=== PATIENT | male | born 1975 | race Two or more races ===

== ENCOUNTER 2019-03-22 13:36 | Inpatient (IN) | payer OTHER ==
[2019-03-22 15:10] VITALS: BMI 33.6
--- NOTE | 2019-03-22 17:12 | HP ---
"CIWA Score Nausea/Vomitin-No Nausea/No Vomiting Muscle Tremors: 4-Moderate,w/Arms Extend Anxiety: 2 Agitation: 1-Slight > Activity Paroxysmal Sweats: 1-Minimal Palms Moist Orientation: 0-Oriented Tacttile Disturbances: 0-None Auditory Disturbances: 0-None Visual Disturbances: 2-Mild Sensitivity Headache: 4-Moderately Severe CIWA-Ar Total Score: 14 - Admission Criteria OASAS Guidelines: Admission for Medically Managed Detox: Requires at least one of the followin. CIWA greater than 12 2. Seizures within the past 24 hours 3. Delirium tremens within the past 24 hours 4. Hallucinations within the past 24 hours 5. Acute intervention needed for co occurring medical disorder 6. Acute intervention needed for co occurring psychiatric disorder 7. Severe withdrawal that cannot be handled at a lower level of care (continued vomiting, continued diarrhea, abnormal vital signs) requiring intravenous medication and/or fluids 8. Admission ROS [facility] Allergies/Adverse Reactions: Allergies Allergy/AdvReac Type Severity Reaction Status Date / Time fluphenazine [From Prolixin] Allergy Rash Verified 03/22/19 14:56 haloperidol [From Haldol] Allergy Rash Verified 03/22/19 14:56 risperidone Allergy Rash Verified 03/22/19 14:56 History of Present Illness: This report was requested by: Rocio Jones | Reference #: [id number] Others' Prescriptions Patient Name: Frederick Bliss Date: 1975 Address: [address] [place] [address] Sex: Male Rx Written Rx Dispensed Drug Quantity Days Supply Prescriber Name 03/09/2019 03/13/2019 alprazolam 0.5 mg tablet 60 30 King Carter MD 01/30/2019 01/30/2019 alprazolam 0.5 mg tablet 60 30 Janene Hyatt (PRODUCT BLENDING SUPERVISOR) 01/04/2019 01/07/2019 lorazepam 0.5 mg tablet 60 30 King Carter MD pt here referred by [facility] 2/2 tremors after drinking alcohol x 1 week , reports 1 x 6-pk , starts drinking in the afternoons after work , reports he was upset about news about social security checks PMHX : SAD , DM II , HTN , chronic back pain ( states 4 years ) w/ radiculopathy , varicocele , HLD , surgery age 10 2/2 injury ( nail in head ) denies SI / HI tobacco : 6-7 cigs /day Exam Limitations: No Limitations - Ebola screening Have you traveled outside of the country in the last 21 days: No (N) Have you had contact with anyone from an Ebola affected area: No Do you have a fever: No - Review of Systems Constitutional: No Symptoms Reported EENT: reports: No Symptoms Reported, Other (glasses , missing teeth) Respiratory: reports: Cough (x 1 month , productive, green sputum , reports h /o bronchitis most recent abx tx summer 2018) Cardiac: reports: No Symptoms Reported GI: reports: No Symptoms Reported : reports: No Symptoms Reported Musculoskeletal: reports: Back Pain, Other (left leg) Integumentary: reports: No Symptoms Reported Neuro: reports: See HPI, Headache Endocrine: reports: See HPI Psychiatric: reports: Orientated x3, Agitated, Anxious Patient History - Smoking Cessation Smoking history: Current every day smoker Have you smoked in the past 12 months: Yes Hx Chewing Tobacco Use: No Initiated information on smoking cessation: Yes 'Breaking Loose' booklet given: 03/22/19 - Substances abused Alcohol Substance route: Oral Frequency: Daily Amount used: 6 CANS OF MARGUARITA Age of first use: 20 Date of last use: 03/21/19 Admission Physical Exam S - Vital Signs Vital Signs: Vital Signs - 24 hr 03/22/19 14:55 Temperature 97.5 F L Pulse Rate 94 H Respiratory 18 Rate Blood Pressure 135/83 - Physical General Appearance: Yes: Mild Distress, Sweating, Anxious HEENTM: Yes: EOMI, Hearing grossly Normal, Normocephalic, Normal Voice Respiratory: Yes: Chest Non-Tender, Lungs Clear, Normal Breath Sounds, No Respiratory Distress, No Accessory Muscle Use Neck: Yes: No masses,lesions,Nodules, Trachea in good position Cardiology: Yes: Regular Rhythm, Regular Rate, S1, S2 Abdominal: Yes: Non Tender, Soft Musculoskeletal: Yes: Gait Steady Extremities: Yes: Normal Range of Motion, Non-Tender Neurological: Yes: Fully Oriented, Alert, Motor Strength 5/5, Normal Mood/Affect Integumentary: Yes: Warm - Diagnostic (1) Alcohol abuse Current Visit: Yes Status: Acute (2) Nicotine dependence Current Visit: Yes Status: Chronic Qualifiers: Nicotine product type: cigarettes Breathalyzer - Breathalyzer Breathalyzer: 0 Urine Drug Screen - Test Device Lot number: [id number] Expiration date: 11/14/20 - Control Is test valid?: Yes - Results Drug screen NEGATIVE: No Urine drug screen results: BZO-Benzodiazepines Inpatient Rehab Admission - Rehab Decision to Admit Inpatient rehab admission?: No"
[2019-03-22] MEDS ORDERED: IBUPROFEN 400 MG TABLET (FP) PO PRN (17:24)
[2019-03-22] MEDS ORDERED: BISMUTH SUBSALICYLATE 524 MG/30 ML UD PO PRN (17:24)
[2019-03-22] MEDS ORDERED: guaiFENesin 200 MG/10 ML 10 ML UNIT-DOSE CUPS PO PRN (17:24)
[2019-03-22] MEDS ORDERED: NICOTINE POLACRILEX 2 MG GUM BUC PRN (17:24)
[2019-03-22] MEDS ORDERED: MAGNESIUM HYDROX 2400MG/30ML ORAL SUSPENSION 30 ML CUP PO PRN (17:24)
[2019-03-22] MEDS ORDERED: P-EPHED 60MG/TRIPROLIDI 2.5MG TABLET PO PRN (17:24)
[2019-03-22] MEDS ORDERED: MELATONIN 5 MG TABLETS PO PRN (17:24)
[2019-03-22] MEDS ORDERED: ACETAMINOPHEN 325 MG TABLET (FP) PO PRN ×2 (17:24)
[2019-03-22] MEDS ORDERED: MENTHOL/PHENOL 1 EACH UD MM PRN (17:24)
[2019-03-22] MEDS ORDERED: hydrOXYzine PAMOATE 25 MG CAPSULE (FP) PO PRN (17:24)
[2019-03-22] MEDS ORDERED: MAG HYDROX/AL HYDROX/SIMETH 30 ML UNIT-DOSE CUP PO PRN (17:24)
[2019-03-22] MEDS ORDERED: MAGNESIUM CITRATE 300 ML BOTTLE PO PRN (17:24)
[2019-03-22] MEDS ORDERED: METHOCARBAMOL 500 MG TABLET PO PRN (17:24)
[2019-03-22] MEDS ORDERED: diazePAM 5 MG TABLET PO ONE (17:27)
[2019-03-22] MEDS: ENALAPRIL MALEATE 5 MG TABLET (FP) PO SCH (18:55)
[2019-03-22] MEDS: AZITHROMYCIN 250 MG TABLET PO SCH (19:03)
[2019-03-22] MEDS: ATORVASTATIN CA 10 MG TABLET (FP) PO SCH (22:08)
[2019-03-22] MEDS: THIAMINE HCL 100 MG TABLET (FP) PO SCH (22:08)
[2019-03-22] MEDS: diazePAM 5 MG TABLET PO SCH (22:08)
[2019-03-23] MEDS: metFORMIN HCL 500 MG TABLET (FP) PO SCH ×2 (06:11→18:21)
[2019-03-23] MEDS: diazePAM 5 MG TABLET PO SCH ×3 (06:11→22:59)
[2019-03-23] MEDS: PRENATAL VITAMINS W/ FOLIC ACID TABLET (FP) PO SCH (10:23)
[2019-03-23] MEDS: ENALAPRIL MALEATE 5 MG TABLET (FP) PO SCH (10:23)
[2019-03-23] MEDS: ASPIRIN 81 MG CHEWABLE TABLETS PO SCH (10:23)
[2019-03-23] MEDS: AZITHROMYCIN 250 MG TABLET PO SCH (10:23)
[2019-03-23] MEDS: diazePAM 5 MG TABLET PO PRN ×3 (10:24→22:55)
[2019-03-23 10:36] LABS: HEMATOCRIT 41.2 % (35.4-49); HEMOGLOBIN 13.8 GM/dL (11.7-16.9); MCH 30.1 pg (25.7-33.7); MCHC 33.4 g/dl (32.0-35.9); MEAN CELL VOLUME 90.3 fl (80-96); MEAN PLT VOLUME 9.1 fl (7.5-11.1); PLATELET COUNT 285 K/MM3 (134-434); RBC 4.57 M/mm3 (4.00-5.60); RDW 14.2 % (11.9-15.9); WHITE BLOOD COUNT 6.4 K/mm3 (4.0-10.0)
[2019-03-23 10:44] LABS: ALBUMIN 3.3 g/dl (3.4-5.0); BILIRUBIN,TOTAL 0.4 mg/dL (0.2-1); BLOOD UREA NITROGEN 11.4 mg/dL (7-18); CALCIUM 9.3 mg/dL (8.5-10.1); CREATININE 0.9 mg/dL (0.55-1.3); POTASSIUM 4.2 mmol/L (3.5-5.1); TOT PROT 6.8 g/dl (6.4-8.2)
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
--- NOTE | 2019-03-23 15:08 | PN ---
S CIWA - CIWA Score Nausea/Vomitin-No Nausea/No Vomiting Muscle Tremors: 3 Anxiety: 3 Agitation: 2 Paroxysmal Sweats: No Perspiration Orientation: 0-Oriented Tacttile Disturbances: 1-Very Mild Itch/Numbness Auditory Disturbances: 0-None Visual Disturbances: 1-Very Mild Sensitivity Headache: 1-Very Mild CIWA-Ar Total Score: 11 S Progress Note (SOAP) Subjective: H/A, Tremors, Anxious. Objective: PATIENT A & O X 3. IN NO ACUTE DISTRESS. 03/23/19 15:09 Vital Signs Temperature 98.7 F 03/23/19 13:25 Pulse Rate 86 03/23/19 13:25 Respiratory Rate 18 03/23/19 13:25 Blood Pressure 125/82 03/23/19 13:25 O2 Sat by Pulse Oximetry (%) Laboratory Tests 03/23/19 03/23/19 03/23/19 07:40 07:40 07:40 WBC 6.4 RBC 4.57 Hgb 13.8 Hct 41.2 MCV 90.3 MCH 30.1 MCHC 33.4 RDW 14.2 Plt Count 285 MPV 9.1 Sodium 137 Potassium 4.2 Chloride 101 Carbon Dioxide 30 Anion Gap 6 L BUN 11.4 Creatinine 0.9 Est GFR (CKD-EPI)AfAm 119.13 Est GFR (CKD-EPI)NonAf 102.79 Random Glucose 116 H Calcium 9.3 Total Bilirubin 0.4 AST 9 L ALT 18 Alkaline Phosphatase 68 Total Protein 6.8 Albumin 3.3 L RPR Titer Nonreactive LABS NOTED. Assessment: 03/23/19 15:10 WITHDRAWAL SYMPTOMS. Plan: CONTINUE DETOX. INCREASE DAILY ORAL WATER INTAKE.
--- NOTE | 2019-03-23 21:03 | PN ---
[facility] Progress Note Note: Psychiatry Attending's note : Order for seroquel XR 200 mg ONCE : cancelled. Seroquel will be held until EKG done/read as per Dr Jones's order. Discussed, via telephone, with nurse.
[2019-03-23 21:25] VITALS: TEMP 97.7
[2019-03-23] MEDS: THIAMINE HCL 100 MG TABLET (FP) PO SCH (22:55)
[2019-03-23] MEDS: ATORVASTATIN CA 10 MG TABLET (FP) PO SCH (22:55)
[2019-03-23] MEDS: BENZTROPINE MESYLATE 1 MG TABLET (FP) PO SCH (22:55)
[2019-03-23] MEDS: DIVALPROEX SODIUM 500 MG TABLET E.C. PO SCH (22:55)
[2019-03-24] MEDS ORDERED: diazePAM 5 MG TABLET PO SCH (06:00)
[2019-03-24 07:06] VITALS: BP 98/60; PULSE 70
[2019-03-24] MEDS: ASPIRIN 81 MG CHEWABLE TABLETS PO SCH (11:46)
[2019-03-24] MEDS: BENZTROPINE MESYLATE 1 MG TABLET (FP) PO SCH (11:46)
[2019-03-24] MEDS: metFORMIN HCL 500 MG TABLET (FP) PO SCH (11:46)
[2019-03-24] MEDS: ENALAPRIL MALEATE 5 MG TABLET (FP) PO SCH (11:46)
[2019-03-24] MEDS: PRENATAL VITAMINS W/ FOLIC ACID TABLET (FP) PO SCH (11:46)
[2019-03-24] MEDS: DIVALPROEX SODIUM 500 MG TABLET E.C. PO SCH (11:46)
[2019-03-24] MEDS: AZITHROMYCIN 250 MG TABLET PO SCH (11:46)
--- NOTE | 2019-03-24 19:09 | DS ---
[facility] Detox Discharge Summary Admission Date: 03/22/19 Discharge Date: 03/24/19 - History Present History: Alcohol Dependence Additional Comments: Patient demanded to leave AMA despite encouragement to complete detox. Patient instructed to call 911 NICHOLE if sick or withdrawal sxs and to see his PCP within 3 days; Patient verbalized understanding. Patient left in stable condition. Pertinent Past History: HTN DMT2 Chronic back pain with radiculopathy HLD - Physical Exam Results Vital Signs: Vital Signs Temperature 97.7 F 03/24/19 09:55 Pulse Rate 70 03/24/19 07:06 Respiratory Rate 16 03/24/19 09:56 Blood Pressure 98/60 03/24/19 09:55 O2 Sat by Pulse Oximetry (%) Pertinent Admission Physical Exam Findings: Withdrawal sxs Laboratory Tests 03/23/19 03/23/19 03/23/19 07:40 07:40 07:40 WBC 6.4 RBC 4.57 Hgb 13.8 Hct 41.2 MCV 90.3 MCH 30.1 MCHC 33.4 RDW 14.2 Plt Count 285 MPV 9.1 Sodium 137 Potassium 4.2 Chloride 101 Carbon Dioxide 30 Anion Gap 6 L BUN 11.4 Creatinine 0.9 Est GFR (CKD-EPI)AfAm 119.13 Est GFR (CKD-EPI)NonAf 102.79 POC Glucometer Random Glucose 116 H Calcium 9.3 Total Bilirubin 0.4 AST 9 L ALT 18 Alkaline Phosphatase 68 Total Protein 6.8 Albumin 3.3 L Valproic Acid RPR Titer Nonreactive 03/23/19 03/24/19 16:42 05:40 WBC RBC Hgb Hct MCV MCH MCHC RDW Plt Count MPV Sodium Potassium Chloride Carbon Dioxide Anion Gap BUN Creatinine Est GFR (CKD-EPI)AfAm Est GFR (CKD-EPI)NonAf POC Glucometer 93 Random Glucose Calcium Total Bilirubin AST ALT Alkaline Phosphatase Total Protein Albumin Valproic Acid 54.6 RPR Titer Labs reviewed - Medication Discharge Medications: Ambulatory Orders Benztropine Mesylate [Cogentin -] 1 mg PO BID 03/22/19 Divalproex Sodium [Depakote ER] 1,000 mg PO BID 03/22/19 Enalapril Maleate 5 mg PO DAILY 03/22/19 LORazepam [Ativan] 0.5 mg PO BID 03/22/19 Metformin HCl [Glucophage] 500 mg PO BID 03/22/19 Quetiapine Fumarate "Xr" [Seroquel Xr -] 450 mg PO DAILY 03/22/19 Simvastatin 20 mg PO HS 03/22/19 Ziprasidone [Geodon] 600 mg PO BID 03/22/19 - Diagnosis (1) HTN (hypertension), benign Status: Chronic (2) Diabetes mellitus type 2 in obese Status: Chronic (3) Chronic radicular pain of lower back Status: Chronic (4) HLD (hyperlipidemia) Status: Chronic (5) Alcohol dependence with uncomplicated withdrawal Status: Acute (6) Nicotine dependence Status: Chronic Qualifiers: Nicotine product type: cigarettes (7) Schizoaffective disorder Status: Chronic - AMA Did Patient Leave Against Medical Advice: Yes (Instructed to call 911 NICHOLE if sick/withdrawal sxs)
[2019-03-25] MEDS ORDERED: diazePAM 5 MG TABLET PO ONE (06:00)
== END 2019-03-24 12:00 | disposition left against medical advice (07) | DRG 770 ==
LOC: YASAS 13:36 → Y6N 17:36
PROVIDERS: ADMIT Allergy & Immunology; ATTEND Allergy & Immunology
PROC: HZ2ZZZZ Detoxification Services for Substance Abuse Treatment (ICD-10-PCS; principal; 2019-03-22)
DX: F10.230 Alcohol dependence with withdrawal, uncomplicated (principal); F25.9 Schizoaffective disorder, unspecified; F19.24 Other psychoactive substance dependence with psychoactive substance-induced mood disorder; F43.10 Post-traumatic stress disorder, unspecified; I10 Essential (primary) hypertension; E11.9 Type 2 diabetes mellitus without complications; Z79.84 Long term (current) use of oral hypoglycemic drugs; E78.5 Hyperlipidemia, unspecified; M54.16 Radiculopathy, lumbar region; E66.9 Obesity, unspecified; Z68.33 Body mass index [BMI] 33.0-33.9, adult; Z88.8 Allergy status to other drugs, medicaments and biological substances; Z87.438 Personal history of other diseases of male genital organs
CPT/HCPCS: 36415; 80053; 80164; 82962; 85027; 86593

== ENCOUNTER 2023-10-24 13:25 | Inpatient (IN) | payer OTHER ==
[2023-10-24 13:56] VITALS: BMI 29.5
[2023-10-24] MEDS ORDERED: MAGNESIUM HYDROX 2400MG/30ML ORAL SUSPENSION 30 ML CUP PO PRN (15:22)
[2023-10-24] MEDS ORDERED: IBUPROFEN 400 MG TABLET (FP) PO PRN (15:22)
[2023-10-24] MEDS ORDERED: guaiFENesin 600 MG TABLET.ER (FP) PO PRN (15:22)
[2023-10-24] MEDS ORDERED: LOPERAMIDE HCL 2 MG CAPSULE PO PRN (15:22)
[2023-10-24] MEDS ORDERED: BENZOCAINE/MENTHOL (CHLORASEPTIC ) LOZENGE MM PRN (15:22)
[2023-10-24] MEDS ORDERED: NICOTINE POLACRILEX 2 MG LOZENGE BC PRN (15:22)
[2023-10-24] MEDS ORDERED: POLYETHYLENE GLYCOL (HEALTHYLAX) 3350 17 GM PACKET PO PRN (15:22)
[2023-10-24] MEDS ORDERED: BISMUTH SUBSALICYLATE 262 MG/15 ML BTL PO PRN (15:22)
[2023-10-24] MEDS ORDERED: BENZONATATE 200 MG CAPSULE PO PRN (15:22)
[2023-10-24] MEDS ORDERED: ONDANSETRON *ODT* 4 MG TABLET SL PRN (15:22)
[2023-10-24] MEDS ORDERED: diazePAM 5 MG TABLET ONE (17:06)
[2023-10-24] MEDS: diazePAM 5 MG TABLET PO SCH (17:08)
[2023-10-24] MEDS: NICOTINE POLACRILEX 2 MG GUM BUC PRN (17:43)
[2023-10-24] MEDS: MAG HYDROX/AL HYDROX/SIMETH 30 ML UNIT-DOSE CUP PO PRN (17:44)
[2023-10-24] MEDS: METHOCARBAMOL 500 MG TABLET PO PRN (18:27)
[2023-10-24 21:40] VITALS: BP 108/66; PULSE 74; RESP 18; TEMP 97.9
[2023-10-24] MEDS: MELATONIN 5 MG TABLETS PO SCH (22:08)
[2023-10-24] MEDS: THIAMINE 100 MG TABLET PO SCH (22:08)
[2023-10-24] MEDS: IBUPROFEN 600 MG TABLET (FP) PO PRN (22:38)
[2023-10-24] MEDS: MELATONIN 5 MG TABLETS PO ONE (22:43)
[2023-10-24] MEDS: DICYCLOMINE HCL 10 MG CAPSULE PO PRN (22:43)
[2023-10-24] MEDS: hydrOXYzine PAMOATE 25 MG CAPSULE (FP) PO ONE (23:29)
[2023-10-24] MEDS: LORazepam 2 MG TABLET PO ONE (23:29)
[2023-10-25] MEDS: diazePAM 5 MG TABLET PO PRN (04:25)
[2023-10-25] MEDS: diazePAM 5 MG TABLET PO SCH (05:07)
[2023-10-25] MEDS: ACETAMINOPHEN 325 MG TABLET (FP) PO PRN (09:34)
[2023-10-25] MEDS ORDERED: ENALAPRIL MALEATE 5 MG TABLET PO SCH (10:00)
[2023-10-25] MEDS ORDERED: PNEUMOC 20-VAL CONJ-DIP CRM/PF 0.5 ML SYRINGE IM ONE (10:00)
[2023-10-25] MEDS ORDERED: PRENATAL VITAMINS W/ FOLIC ACID TABLET (FP) PO SCH (10:00)
[2023-10-25] MEDS ORDERED: metFORMIN HCL 500 MG TABLET (FP) PO SCH (16:30)
[2023-10-26] MEDS ORDERED: diazePAM 5 MG TABLET PO SCH (06:00)
[2023-10-27] MEDS ORDERED: diazePAM 5 MG TABLET PO ONE (06:00)
== END 2023-10-25 10:50 | disposition home or self-care (01) | DRG 775 ==
LOC: YASAS 13:25 → Y6N 16:39
PROVIDERS: ADMIT Allergy & Immunology; ATTEND Surgery
PROC: HZ2ZZZZ Detoxification Services for Substance Abuse Treatment (ICD-10-PCS; principal; 2023-10-24)
DX: F10.230 Alcohol dependence with withdrawal, uncomplicated (principal); F12.20 Cannabis dependence, uncomplicated; F17.210 Nicotine dependence, cigarettes, uncomplicated; F10.280 Alcohol dependence with alcohol-induced anxiety disorder; F10.282 Alcohol dependence with alcohol-induced sleep disorder; F25.9 Schizoaffective disorder, unspecified; I10 Essential (primary) hypertension; E78.5 Hyperlipidemia, unspecified; E11.9 Type 2 diabetes mellitus without complications; Z79.84 Long term (current) use of oral hypoglycemic drugs; M54.16 Radiculopathy, lumbar region; Z62.810 Personal history of physical and sexual abuse in childhood; Z63.8 Other specified problems related to primary support group; Z88.8 Allergy status to other drugs, medicaments and biological substances
CPT/HCPCS: 80305; 80307; 82962; 93005; 93010

== ENCOUNTER 2024-02-29 14:07 | Inpatient (IN) | payer OTHER ==
[2024-02-29 14:39] VITALS: BMI 31.0
[2024-02-29] MEDS ORDERED: IBUPROFEN 600 MG TABLET (FP) PO PRN (15:30)
[2024-02-29] MEDS ORDERED: MAGNESIUM HYDROX 2400MG/30ML ORAL SUSPENSION 30 ML CUP PO PRN (15:30)
[2024-02-29] MEDS ORDERED: guaiFENesin 600 MG TABLET.ER (FP) PO PRN (15:30)
[2024-02-29] MEDS ORDERED: BISMUTH SUBSALICYLATE 524 MG/30 ML PO PRN (15:30)
[2024-02-29] MEDS ORDERED: MAG HYDROX/AL HYDROX/SIMETH 30 ML UNIT-DOSE CUP PO PRN (15:30)
[2024-02-29] MEDS ORDERED: diazePAM 5 MG TABLET PO PRN (15:30)
[2024-02-29] MEDS ORDERED: DICYCLOMINE HCL 10 MG CAPSULE PO PRN (15:30)
[2024-02-29] MEDS ORDERED: ACETAMINOPHEN 325 MG TABLET (FP) PO PRN (15:30)
[2024-02-29] MEDS ORDERED: LOPERAMIDE HCL 2 MG CAPSULE PO PRN (15:30)
[2024-02-29] MEDS ORDERED: IBUPROFEN 400 MG TABLET (FP) PO PRN (15:30)
[2024-02-29] MEDS ORDERED: POLYETHYLENE GLYCOL (HEALTHYLAX) 3350 17 GM PACKET PO PRN (15:30)
[2024-02-29] MEDS ORDERED: BENZONATATE 200 MG CAPSULE PO PRN (15:30)
[2024-02-29] MEDS ORDERED: BENZOCAINE/MENTHOL (CHLORASEPTIC ) LOZENGE MM PRN (15:30)
[2024-02-29] MEDS ORDERED: NALOXONE (NARCAN) HCL 4 MG/0.1 ML SPRAY NS PRN (15:30)
[2024-02-29] MEDS ORDERED: ONDANSETRON *ODT* 4 MG TABLET SL PRN (15:30)
[2024-02-29] MEDS ORDERED: diazePAM 5 MG TABLET ONE ×2 (18:40→22:21)
[2024-02-29] MEDS ORDERED: NICOTINE 14 MG/24 HOURS TOPICAL PATCH TD ONE (18:41)
[2024-02-29] MEDS ORDERED: PRENATAL VITAMINS W/ FOLIC ACID TABLET (FP) PO ONE (18:41)
[2024-02-29] MEDS: PRENATAL VITAMINS W/ FOLIC ACID TABLET (FP) PO SCH (18:52)
[2024-02-29] MEDS: diazePAM 5 MG TABLET PO SCH (18:53)
[2024-02-29] MEDS: NICOTINE 14 MG/24 HOURS TOPICAL PATCH TD SCH (18:53)
[2024-02-29] MEDS ORDERED: TUBERCULIN PPD 5 TU/0.1ML VIAL ID ONE (21:46)
[2024-02-29] MEDS ORDERED: MELATONIN 5 MG TABLETS ONE (22:18)
[2024-02-29] MEDS: ATORVASTATIN CA 10 MG TABLET (FP) PO SCH (22:56)
[2024-02-29] MEDS: THIAMINE 100 MG TABLET PO SCH (22:56)
[2024-02-29] MEDS: metFORMIN HCL 500 MG TABLET (FP) PO SCH (22:56)
[2024-02-29] MEDS: DIVALPROEX NA *ER* EXTEND REL 500 MG TABLET.SA (FP) PO SCH (22:56)
[2024-02-29] MEDS: MELATONIN 5 MG TABLETS PO SCH (22:56)
[2024-03-01] MEDS: METHOCARBAMOL 500 MG TABLET PO PRN (00:58)
[2024-03-01] MEDS: hydrOXYzine PAMOATE 25 MG CAPSULE (FP) PO PRN (01:00)
[2024-03-01 06:01] VITALS: BP 107/70; PULSE 61; RESP 16; TEMP 97.8
[2024-03-01] MEDS ORDERED: PNEUMOC 20-VAL CONJ-DIP CRM/PF 0.5 ML SYRINGE IM ONE (12:00)
[2024-03-01] MEDS ORDERED: FLU VACCINE (FLULAVAL) PF 45 MCG/0.5 ML SYRINGE 2024-2025 IM ONE (12:00)
[2024-03-02] MEDS ORDERED: diazePAM 5 MG TABLET PO SCH (06:00)
[2024-03-03] MEDS ORDERED: diazePAM 5 MG TABLET PO SCH (06:00)
[2024-03-04] MEDS ORDERED: diazePAM 5 MG TABLET PO ONE (06:00)
== END 2024-03-01 09:04 | disposition left against medical advice (07) | DRG 770 ==
LOC: YASAS 14:07 → Y3N 20:50
PROVIDERS: ADMIT Allergy & Immunology; ATTEND Surgery
PROC: HZ2ZZZZ Detoxification Services for Substance Abuse Treatment (ICD-10-PCS; principal; 2024-02-29)
DX: F10.230 Alcohol dependence with withdrawal, uncomplicated (principal); F17.210 Nicotine dependence, cigarettes, uncomplicated; F31.9 Bipolar disorder, unspecified; F43.10 Post-traumatic stress disorder, unspecified; I10 Essential (primary) hypertension; E78.5 Hyperlipidemia, unspecified; E11.9 Type 2 diabetes mellitus without complications; Z79.84 Long term (current) use of oral hypoglycemic drugs
CPT/HCPCS: 80305; 80307; 82962; 93005; 93010